=== PATIENT | male | born 1955 | race Caucasian/White ===

== ENCOUNTER 2024-02-01 20:20 | Emergency (ER) | payer MEDICARE ==
[2024-02-01] MEDS: Diphtheria/Tetanus Toxoids,Adult (Td) 0.5 ML SDV IM ONE (20:59)
[2024-02-01] MEDS: Diphtheria,Pertussis(Acell),Tetanus Vaccine 0.5 ML Syringe IM ONE (21:07)
[2024-02-01] MEDS: Lidocaine/Epineph/Tetracaine 3 ML Syringe TOP ONE (21:09)
[2024-02-01] MEDS: ceFAZolin 2 GM in Premix Bag 1 BAG IV ONE (21:13)
[2024-02-01] MEDS: Bacitracin Oint 1 GM U/D Packet TOP ONE (22:53)
[2024-02-01] MEDS: Acetaminophen 325 MG Tab PO ONE (23:10)
== END 2024-02-01 23:29 | disposition home or self-care (01) ==
LOC: JP.ED 20:20
DX: S61.211A Laceration without foreign body of left index finger without damage to nail, initial encounter (principal); Z79.899 Other long term (current) drug therapy; Z23 Encounter for immunization; W27.8XXA Contact with other nonpowered hand tool, initial encounter
CPT/HCPCS: 12002; 73130; 90471; 90715; 96365; 96366; 99284; A9270; J0690